=== PATIENT | female | born 1960 | race Caucasian/White ===

== ENCOUNTER 2019-09-19 11:02 | Emergency (ER) | payer MEDICARE, OTHER ==
[~2019-09-19] VITALS: Ht 170.2 cm; Wt 83.9 kg
[~2019-09-19 11:02] MED LIST: ALDACTONE25 MG PO; CARVEDILOL12.5 MG PO; CYCLOBENZAPRINE10 MG PO; FUROSEMIDE20 MG PO; GUAIFENESIN AC473 ML PO; LOVASTATIN40 MG PO; PROVENTIL HFA6.7 GM INH; TRAMADOL HCL50 MG PO; ZESTRIL5 MG PO; ZITHROMAX250 MG PO
[2019-09-19] MEDS ORDERED: SPIRONOLACTONE25 MG PO (11:23)
[2019-09-19] MEDS ORDERED: ANORO ELLIPTA1 EACH INH (11:24)
[2019-09-19] MEDS ORDERED: NORCO 5-325 TA1 EACH PO (12:54)
[2019-09-19] MEDS ORDERED: PREDNISONE20 MG PO (12:54)
== END 2019-09-19 13:00 | disposition home or self-care (01) ==
LOC: ED 11:02
DX: M25.561 Pain in right knee (principal); I50.9 Heart failure, unspecified; E78.00 Pure hypercholesterolemia, unspecified; F17.200 Nicotine dependence, unspecified, uncomplicated; Z88.5 Allergy status to narcotic agent; Z79.899 Other long term (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
CPT/HCPCS: 73560; 99283-25

== ENCOUNTER → 2019-11-17 | Emergency (ER) | payer MEDICARE, OTHER ==
[~2019-11-17] VITALS: Ht 170.2 cm; Wt 83.9 kg
[~2019-11-17] MED LIST changes: +ANORO ELLIPTA1 EACH INH; +NORCO 5-325 TA1 EACH PO; +PREDNISONE20 MG PO; +SPIRONOLACTONE25 MG PO
== END ==
LOC: ED 18:13
DX: M54.42 Lumbago with sciatica, left side (principal); I50.9 Heart failure, unspecified; J44.9 Chronic obstructive pulmonary disease, unspecified; F17.200 Nicotine dependence, unspecified, uncomplicated; Z88.5 Allergy status to narcotic agent; Z79.899 Other long term (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
CPT/HCPCS: 99283

== ENCOUNTER 2020-01-11 08:31 | Emergency (ER) | payer MEDICARE, OTHER ==
[~2020-01-11] VITALS: Ht 170.2 cm; Wt 83.9 kg
[2020-01-11] MEDS ORDERED: NORCO 5-325 TA1 EACH PO (12:04)
== END 2020-01-11 12:13 | disposition home or self-care (01) ==
LOC: ED 08:31
DX: R10.9 Unspecified abdominal pain (principal); N28.1 Cyst of kidney, acquired; I50.9 Heart failure, unspecified; N18.3 Chronic kidney disease, stage 3 (moderate); J44.9 Chronic obstructive pulmonary disease, unspecified; F17.200 Nicotine dependence, unspecified, uncomplicated; Z79.899 Other long term (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
CPT/HCPCS: 74176; 80048; 81001; 85025; 96374; 96375; 96376; 99284-25; J1170; J1885; J2405

== ENCOUNTER 2020-01-22 07:10 | Emergency (ER) | payer MEDICARE, OTHER ==
[~2020-01-22] VITALS: Ht 170.2 cm; Wt 83.9 kg
--- OUTSIDE RECORDS SUMMARY | 2020-01-22 07:14 | XMS ---
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 Care Guidelines exist for the following facilities: [facility] ( 08/25/2017 ) [place] VISIT COUNT (12 MO.) 4 [facility] TOTAL 4 NOTE: Visits indicate total known visits. 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 - Heart failure, unspecified - Chronic kidney disease, stage 3 (moderate) - Cyst of kidney, acquired - Chronic obstructive pulmonary disease, unspecified - Nicotine dependence, unspecified, uncomplicated 11/17/2019 18:14 [facility] [place] TYPE: Emergency COMPLAINT: - L LEFT PAIN DIAGNOSES: - Heart failure, unspecified - Lumbago with sciatica, left side - Chronic obstructive pulmonary disease, unspecified - Nicotine dependence, unspecified, uncomplicated - Allergy status to narcotic agent status - Low back pain - 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
[2020-01-22] MEDS ORDERED: PREDNISONE20 MG PO (08:31)
--- NOTE | 2020-01-22 16:34 | EKG ---
[facility] [address] [place], [place] [address] Signed Normal sinus rhythm with sinus arrhythmia Left bundle branch block Abnormal ECG No previous ECGs available Confirmed by FATOUMATA ISAAC DO ([id number]) on 01/22/2020 4:34:30 PM Electronically Signed By: FATOUMATA ISAAC DO 01/22/20 1634 PATIENT NAME: MARTHA YOUNGBLOOD LUCIUS Electrocardiogram DATE OF : 58 PHYSICIAN: FATOUMATA ISAAC DO REPORT #: [id number] REPORT IS CONFIDENTIAL AND NOT TO BE RELEASED WITHOUT AUTHORIZATION
== END 2020-01-22 10:03 | disposition home or self-care (01) ==
LOC: ED 07:10
DX: J44.1 Chronic obstructive pulmonary disease with (acute) exacerbation (principal); I50.9 Heart failure, unspecified; E78.00 Pure hypercholesterolemia, unspecified; Z87.891 Personal history of nicotine dependence; Z79.899 Other long term (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
CPT/HCPCS: 71045; 80053; 83735; 83880; 84484; 85025; 93005; 93010; 96374; 99285-25; J1885; J7512

== ENCOUNTER 2020-02-01 07:45 | Emergency (ER) | payer MEDICARE, OTHER ==
[~2020-02-01] VITALS: Ht 170.2 cm; Wt 81.7 kg
--- OUTSIDE RECORDS SUMMARY | 2020-02-01 07:48 | XMS ---
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 If patient is seen in the ED during business hours. Please contact CHWs at [facility]. - Care Recommendation: If this patient has had 5 or more Emergency Department visits in the last 12 months.\T\nbsp; Patient will require education on the scope and purpose of the ED as an acute care provider not a Primary Care Provider and should not be utilized for chronic conditions.\T\nbsp; These are guidelines and the provider should exercise clinical judgment when providing care. E.D. VISIT COUNT (12 MO.) 5 [facility] TOTAL 5 NOTE: Visits indicate total known visits. 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
[2020-02-01] MEDS ORDERED: SYMBICORT 16010.2 GM INH (08:58)
[2020-02-01] MEDS ORDERED: NORCO 5-325 TA1 EACH PO (09:36)
[2020-02-01] MEDS ORDERED: CYCLOBENZAPRINE10 MG PO (09:36)
[2020-02-01] MEDS ORDERED: LIDODERM1 EACH TOP (09:36)
[2020-02-01] MEDS ORDERED: PREDNISONE20 MG PO (09:36)
== END 2020-02-01 09:54 | disposition home or self-care (01) ==
LOC: ED 07:45
DX: M54.41 Lumbago with sciatica, right side (principal); M54.42 Lumbago with sciatica, left side; I50.9 Heart failure, unspecified; J44.9 Chronic obstructive pulmonary disease, unspecified; Z79.899 Other long term (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
CPT/HCPCS: 99283; A9270; J7512

== ENCOUNTER 2020-05-14 09:50 | Emergency (ER) | payer MEDICARE, OTHER ==
[~2020-05-14] VITALS: Ht 170.2 cm; Wt 97.4 kg
[~2020-05-14 09:50] MED LIST changes: +LIDODERM1 EACH TOP; +SYMBICORT 16010.2 GM INH
--- OUTSIDE RECORDS SUMMARY | 2020-05-14 09:52 | XMS ---
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 If patient is seen in the ED during business hours. Please contact CHWs at [facility]. - Care Recommendation: If this patient has [...] providing care. E.D. VISIT COUNT (12 MO.) 6 [facility] TOTAL 6 NOTE: Visits indicate total known visits. 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 - Chest pain, unspecified - Personal history of nicotine dependence - Pure hypercholesterolemia, unspecified - Chronic obstructive pulmonary disease with (acute) exacerbation - Heart failure, unspecified 01/11/2020 08:31 [facility] [place] TYPE: Emergency COMPLAINT: - L SIDE FLANK PAIN DIAGNOSES: - Unspecified abdominal pain - 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 worker (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 - Heart failure, unspecified [...] uncomplicated - Allergy status to narcotic agent - Low back pain - Other residential (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 09/19/2019 11:03 [facility] [place] TYPE: Emergency COMPLAINT: - KNEE PAIN, NON INJ DIAGNOSES: - Pure hypercholesterolemia, unspecified - Pain in right knee - Allergy status to narcotic agent - Nicotine dependence, unspecified, uncomplicated - Heart failure, unspecified - Other residential (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 INPATIENT VISIT TRACKING (12 MO.) No inpatient visits to display in this time frame [id number]
[2020-05-14] MEDS ORDERED: KEFLEX500 MG PO (15:59)
== END 2020-05-14 17:39 | disposition home or self-care (01) ==
LOC: ED 09:50
DX: N39.0 Urinary tract infection, site not specified (principal); I50.9 Heart failure, unspecified; E78.00 Pure hypercholesterolemia, unspecified; Z87.891 Personal history of nicotine dependence; Z79.899 Other long term (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
CPT/HCPCS: 74176; 76770; 80048; 81001; 85025; 87088; 96365; 96375; 99284-25; J0696; J1170; J1885; J2405

== ENCOUNTER 2020-07-23 06:30 | Emergency (ER) | payer MEDICARE, OTHER ==
[~2020-07-23] VITALS: Ht 170.2 cm; Wt 88.5 kg
[~2020-07-23 06:30] MED LIST changes: +KEFLEX500 MG PO
--- OUTSIDE RECORDS SUMMARY | 2020-07-23 06:32 | XMS ---
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 If patient is seen in the ED during business hours. Please contact CHWs at [facility]. - Care Recommendation: If this patient [...] providing care. E.D. VISIT COUNT (12 MO.) 7 [facility] TOTAL 7 NOTE: Visits indicate total known visits. 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 - Heart failure, unspecified - Lumbago with sciatica, left side - Lumbago with sciatica, right side - Personal history of nicotine dependence - Chronic obstructive pulmonary disease, unspecified - Low back pain 01/22/2020 07:11 [facility] [place] TYPE: Emergency COMPLAINT: - CHEST PAIN DIAGNOSES: - Other alf (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 - Chest pain, unspecified - Personal history of nicotine dependence - Pure hypercholesterolemia, unspecified - Chronic obstructive pulmonary disease with (acute) exacerbation - Heart failure, unspecified 01/11/2020 08:31 [facility] [place] TYPE: Emergency COMPLAINT: - L SIDE FLANK PAIN DIAGNOSES: - Unspecified abdominal pain - Other alf (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 - Heart failure, unspecified [...] agent - Low back pain - Other alf (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 09/19/2019 11:03 [facility] [place] TYPE: Emergency COMPLAINT: - KNEE PAIN, NON INJ DIAGNOSES: - Pure hypercholesterolemia, unspecified - Pain in right knee - Allergy status to narcotic agent - Nicotine dependence, unspecified, uncomplicated - Heart failure, unspecified - Other roasterman (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 INPATIENT VISIT TRACKING (12 MO.) No inpatient visits to display in this time frame [id number]
[2020-07-23] MEDS ORDERED: HYDROCODON-ACE1 EA10 PO (08:56)
[2020-07-23] MEDS ORDERED: PREDNISONE20 MG PO (08:56)
[2020-07-23] MEDS ORDERED: AUGMENTIN 875-1 EACH PO (08:56)
--- NOTE | 2020-07-24 16:40 | EKG ---
[facility] [address] [place], [place] [address] Signed Normal sinus rhythm Left bundle branch block Abnormal ECG When compared with ECG of 22-JAN-2020 07:17, No significant change was found Confirmed by FATOUMATA ISAAC DO ([id number]) on 07/24/2020 4:40:04 PM Electronically Signed By: FATOUMATA ISAAC DO 07/24/20 1640 PATIENT NAME: GLENN YOUNGBLOODALBERT KAN Electrocardiogram DATE OF : 58 PHYSICIAN: FATOUMATA ISAAC DO REPORT #: [id number] REPORT IS CONFIDENTIAL AND NOT TO BE RELEASED WITHOUT AUTHORIZATION
== END 2020-07-23 09:07 | disposition home or self-care (01) ==
LOC: ED 06:30
DX: J32.9 Chronic sinusitis, unspecified (principal); J40 Bronchitis, not specified as acute or chronic; Z20.822 Contact with and (suspected) exposure to COVID-19; I50.9 Heart failure, unspecified; E78.00 Pure hypercholesterolemia, unspecified; J44.9 Chronic obstructive pulmonary disease, unspecified; Z87.891 Personal history of nicotine dependence; Z91.018 Allergy to other foods; Z79.899 Other long term (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
CPT/HCPCS: 71045; 80048; 83880; 84484; 85025; 93005; 93010; 94640; 94664; 99285-25; 99406; C9803; J1100; U0003

== ENCOUNTER 2020-08-18 06:06 | Emergency (ER) | payer MEDICARE, OTHER ==
[~2020-08-18] VITALS: Ht 170.2 cm; Wt 88.5 kg
[~2020-08-18 06:06] MED LIST changes: +AUGMENTIN 875-1 EACH PO; +HYDROCODON-ACE1 EA10 PO
--- OUTSIDE RECORDS SUMMARY | 2020-08-18 06:10 | XMS ---
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 No recent Security Events currently on file CRITERIA MET - [facility] - Has Care Guidelines - PDMP - [facility] - 2 Visits in 30 Days CARE PROVIDERS JESÚS NAVA [facility] 01/24/2020-Current PHONE: [phone] Care Guidelines exist for the following facilities: [facility] ( 08/25/2017 ) Care History Medical/Surgical 07/24/2020 [facility] Spoke with patient about using Walk In Clinic for non life threatening medical treatment.\T\nbsp; Patient stated she needed to be seen SANDRA cause her sinuses were so full that she was having trouble breathing, but she will try to use it if there is a next timje. 01/24/2020 [facility] - Patient is currently established with [facility]. If patient is seen in the ED during business hours. Please contact CHWs at [facility]. - Care Recommendation: If this patient has had 5 or more Emergency Department visits in the last 12 months.\T\nbsp; Patient will require education on the scope and purpose of the ED as an acute care provider not a Primary Care Provider and should not be utilized for chronic conditions.\T\nbsp; These are guidelines and the provider should exercise clinical judgment when providing care. ERashawnD. VISIT COUNT (12 MO.) 8 [facility] TOTAL 8 NOTE: Visits indicate total known visits. ED/UCC VISIT TRACKING (12 MO.) 08/18/2020 06:07 [facility] [place] TYPE: Emergency COMPLAINT: - DENTAL PAIN 07/23/2020 06:31 [facility] [place] TYPE: Emergency COMPLAINT: - COLD SYMPTOMS DIAGNOSES: - Allergy to other foods - Bronchitis, not specified as acute or chronic - Personal history of nicotine dependence - Chronic sinusitis, unspecified - Pure hypercholesterolemia, unspecified - Heart failure, unspecified - Other custodial (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 - Chronic obstructive pulmonary disease, unspecified - Shortness of breath 05/14/2020 09:51 [facility] [place] TYPE: Emergency COMPLAINT: - BACK PAIN DIAGNOSES: - Pure hypercholesterolemia, unspecified - Personal history of nicotine dependence - Heart failure, unspecified - Urinary tract infection, site not specified - Unspecified abdominal pain - 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 carman (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 02/01/2020 07:45 [facility] [place] TYPE: Emergency COMPLAINT: - LOWER BACK/LEGS PAIN DIAGNOSES: - 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 carman (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 - Heart failure, unspecified - Lumbago with sciatica, left side - Lumbago with sciatica, right side - Personal history of nicotine dependence - Chronic obstructive pulmonary disease, unspecified - Low back pain 01/22/2020 07:11 [facility] [place] TYPE: Emergency COMPLAINT: - CHEST PAIN DIAGNOSES: - 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 carman (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 - Chest pain, unspecified - Personal history of nicotine dependence - Pure hypercholesterolemia, unspecified - Chronic obstructive pulmonary disease with (acute) exacerbation - Heart failure, unspecified 01/11/2020 08:31 [facility] [place] [facility] [place] TYPE: Emergency COMPLAINT: - L SIDE FLANK PAIN DIAGNOSES: - Unspecified abdominal pain - Other custodial (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 - Heart failure, unspecified - Chronic kidney disease, stage 3 (moderate) - Cyst of kidney, acquired - Chronic obstructive pulmonary disease, unspecified - Nicotine dependence, unspecified, uncomplicated 11/17/2019 18:14 [facility] [place] [facility] [place] TYPE: Emergency COMPLAINT: - L LEFT PAIN DIAGNOSES: - Heart failure, unspecified - Lumbago with sciatica, left side - Chronic obstructive pulmonary disease, unspecified - Nicotine dependence, unspecified, uncomplicated - Allergy status to narcotic agent - Low back pain - Other custodial (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 09/19/2019 11:[address] [facility] [place] TYPE: Emergency COMPLAINT: - KNEE PAIN, NON INJ DIAGNOSES: - Pure hypercholesterolemia, unspecified - Pain in right knee - Allergy status to narcotic agent - Nicotine dependence, unspecified, uncomplicated - Heart failure, unspecified - 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 carman (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 INPATIENT VISIT TRACKING (12 MO.) No inpatient visits to display in this time frame [email or web address]
[2020-08-18] MEDS ORDERED: PENICILLIN V P500 MG PO (06:45)
== END 2020-08-18 06:52 | disposition home or self-care (01) ==
LOC: ED 06:06
DX: K04.7 Periapical abscess without sinus (principal); I50.9 Heart failure, unspecified; E78.00 Pure hypercholesterolemia, unspecified; J44.9 Chronic obstructive pulmonary disease, unspecified; Z87.891 Personal history of nicotine dependence; Z91.018 Allergy to other foods; Z79.899 Other long term (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; Z79.52 Long term (current) use of systemic steroids
CPT/HCPCS: 99282

== ENCOUNTER 2020-12-31 09:02 | Emergency (ER) | payer MEDICARE, OTHER ==
[~2020-12-31] VITALS: Ht 170.2 cm; Wt 88.5 kg
[~2020-12-31 09:02] MED LIST changes: +PENICILLIN V P500 MG PO
--- OUTSIDE RECORDS SUMMARY | 2020-12-31 09:06 | XMS ---
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 No recent Security Events currently on file CRITERIA MET - [facility] - Has Care Guidelines - PDMP CARE PROVIDERS JESÚS NAVA [facility] 01/24/2020-Current PHONE: [phone] Care Guidelines exist for the following facilities: [facility] ( 08/25/2017 ) Care History Medical/Surgical 07/24/2020 [facility] Spoke with patient about using Walk In Clinic for non life threatening medical treatment.\T\nbsp; Patient stated she needed to be seen SANDRA cause her sinuses were so full that she was having trouble breathing, but she will try to use it if there is a next timje. 01/24/2020 [facility] - Patient is currently established with [facility]. If patient is seen in the ED during business hours. Please contact CHWs at [facility]. - Care Recommendation: If this [...] should exercise clinical judgment when providing care. [place] VISIT COUNT (12 MO.) 7 [facility] TOTAL 7 NOTE: Visits indicate total known visits. ED/UCC VISIT TRACKING (12 MO.) 12/31/2020 09:03 [facility] [place] TYPE: Emergency COMPLAINT: - LOWER BACK PAIN 08/18/2020 06:07 [facility] [place] TYPE: Emergency COMPLAINT: - DENTAL PAIN DIAGNOSES: - Personal history of nicotine dependence - Pure hypercholesterolemia, unspecified - penitentiary (current) use of systemic steroids - Periapical abscess without sinus - Chronic obstructive pulmonary disease, unspecified - Heart failure, unspecified - Other skilled nursing (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 - Allergy to other foods 07/23/2020 06:31 [facility] [place] TYPE: Emergency COMPLAINT: - COLD SYMPTOMS DIAGNOSES: - Allergy to other foods - Bronchitis, not specified as acute or chronic - Personal history of nicotine dependence - Chronic sinusitis, unspecified - Pure hypercholesterolemia, unspecified - Heart failure, unspecified - Other skilled nursing (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 - Chronic obstructive pulmonary disease, unspecified - Shortness of breath 05/14/2020 09:51 [facility] [place] TYPE: Emergency COMPLAINT: - BACK PAIN DIAGNOSES: - Pure hypercholesterolemia, unspecified - Personal history of nicotine dependence - Heart failure, unspecified - Urinary tract infection, site not specified - Unspecified abdominal pain - Other intermediate card tender (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 02/01/2020 07:45 [facility] [place] TYPE: Emergency COMPLAINT: - LOWER BACK/LEGS PAIN DIAGNOSES: - Other intermediate card tender (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 - Heart failure, unspecified - Lumbago with sciatica, left side - Lumbago with sciatica, right side - Personal history of nicotine dependence - Chronic obstructive pulmonary disease, unspecified - Low back pain 01/22/2020 07:11 [facility] [place] TYPE: Emergency COMPLAINT: - CHEST PAIN DIAGNOSES: - Other intermediate card tender (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 - Chest pain, unspecified - Personal history of nicotine dependence - Pure hypercholesterolemia, unspecified - Chronic obstructive pulmonary disease with (acute) exacerbation - Heart failure, unspecified 01/11/2020 08:31 [facility] [place] TYPE: Emergency COMPLAINT: - L SIDE FLANK PAIN DIAGNOSES: - Unspecified abdominal pain - Other intermediate card tender (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 - Heart failure, unspecified - Chronic kidney disease, stage 3 (moderate) - Cyst of kidney, acquired - Chronic obstructive pulmonary disease, unspecified - Nicotine dependence, unspecified, uncomplicated INPATIENT VISIT TRACKING (12 MO.) No inpatient visits to display in this time frame [email or web address]
[2020-12-31] MEDS ORDERED: FLAGYL500 MG PO (13:50)
[2020-12-31] MEDS ORDERED: HYDROCODON-ACE1 EA11 PO (13:50)
[2020-12-31] MEDS ORDERED: CIPRO500 MG PO (13:50)
[2020-12-31] MEDS ORDERED: ONDANSETRON ODT8 MG PO (13:53)
== END 2020-12-31 14:23 | disposition home or self-care (01) ==
LOC: ED 09:02
DX: K57.32 Diverticulitis of large intestine without perforation or abscess without bleeding (principal); I50.9 Heart failure, unspecified; E78.00 Pure hypercholesterolemia, unspecified; Z87.891 Personal history of nicotine dependence; Z91.018 Allergy to other foods; Z79.899 Other long term (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; Z79.52 Long term (current) use of systemic steroids
CPT/HCPCS: 74176; 80053; 81001; 85025; 96374; 96375; 96376; 99284-25; J1170; J1885; J2405; J2550; J7030

== ENCOUNTER 2021-01-08 11:46 | Emergency (ER) | payer MEDICARE, OTHER ==
[~2021-01-08] VITALS: Ht 170.2 cm; Wt 88.5 kg
[~2021-01-08 11:46] MED LIST changes: +CIPRO500 MG PO; +FLAGYL500 MG PO; +HYDROCODON-ACE1 EA11 PO; +ONDANSETRON ODT8 MG PO
--- OUTSIDE RECORDS SUMMARY | 2021-01-08 11:48 | XMS ---
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 No recent Security Events currently on file CRITERIA MET - [facility] - 2 Visits in 30 Days - PDMP - [facility] - Has Care Guidelines CARE PROVIDERS JESÚS NAVA [facility] 01/24/2020-Current PHONE: [phone] Care Guidelines exist for the following facilities: [facility] ( 08/25/2017 ) Care History Medical/Surgical 07/24/2020 [facility] Spoke with patient about using Walk In Clinic for non life threatening medical treatment.\T\nbsp; Patient stated she needed to be seen SANDRA cause her sinuses were so full that she was having trouble breathing, but she will try to use it if there is a next timje. 01/24/2020 [facility] - Patient is currently established with [facility]. If patient is seen in the ED during business hours. Please contact CHWs at [facility]. - Care Recommendation: If this [...] providing care. E.D. VISIT COUNT (12 MO.) 8 HANG Veloz TOTAL 8 NOTE: Visits indicate total known visits. ED/UCC VISIT TRACKING (12 MO.) 01/08/2021 11:47 [facility] [place] TYPE: Emergency COMPLAINT: - NAUSEA/VOMITING 12/31/2020 09:03 [facility] [place] TYPE: Emergency COMPLAINT: - LOWER BACK PAIN DIAGNOSES: - Allergy to other foods - Personal history of nicotine dependence - Other assisted (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 - Heart failure, unspecified - Pure hypercholesterolemia, unspecified - long-term (current) use of systemic steroids - Unspecified abdominal pain - Diverticulitis of large intestine without perforation or abscess without bleeding 08/18/2020 06:07 [facility] [place] TYPE: Emergency COMPLAINT: - DENTAL PAIN DIAGNOSES: - Personal history of nicotine dependence - Pure hypercholesterolemia, unspecified - meterman (current) use of systemic steroids - Periapical abscess without sinus - Chronic obstructive pulmonary disease, unspecified - Heart failure, unspecified - Other assisted (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 - Allergy to other foods 07/23/2020 06:31 [facility] [place] TYPE: Emergency COMPLAINT: - COLD SYMPTOMS DIAGNOSES: - Allergy to other foods - Bronchitis, not specified as acute or chronic - Personal history of nicotine dependence - Chronic sinusitis, unspecified - Pure hypercholesterolemia, unspecified - Heart failure, unspecified - Other assisted (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 - Chronic obstructive pulmonary disease, unspecified - Shortness of breath 05/14/2020 09:51 [facility] [place] TYPE: Emergency COMPLAINT: - BACK PAIN DIAGNOSES: - Pure hypercholesterolemia, unspecified - Personal history of nicotine dependence - Heart failure, unspecified - Urinary tract infection, site not specified - Unspecified abdominal pain - Other keno terminal operator (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 02/01/2020 07:45 [facility] [place] TYPE: Emergency COMPLAINT: - LOWER BACK/LEGS PAIN DIAGNOSES: - Other keno terminal operator (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 - Heart failure, unspecified - Lumbago with sciatica, left side - Lumbago with sciatica, right side - Personal history of nicotine dependence - Chronic obstructive pulmonary disease, unspecified - Low back pain 01/22/2020 07:11 [facility] [place] TYPE: Emergency COMPLAINT: - CHEST PAIN DIAGNOSES: - Other assisted (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 - Chest pain, unspecified - Personal history of nicotine dependence - Pure hypercholesterolemia, unspecified - Chronic obstructive pulmonary disease with (acute) exacerbation - Heart failure, unspecified 01/11/2020 08:31 [facility] [place] TYPE: Emergency COMPLAINT: - L SIDE FLANK PAIN DIAGNOSES: - Unspecified abdominal pain - Other keno terminal operator (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 - Heart failure, unspecified - Chronic kidney disease, stage 3 (moderate) - Cyst of kidney, acquired - Chronic obstructive pulmonary disease, unspecified - Nicotine dependence, unspecified, uncomplicated INPATIENT VISIT TRACKING (12 MO.) No inpatient visits to display in this time frame [email or web address]
== END 2021-01-08 16:33 | disposition home or self-care (01) ==
LOC: ED 11:46
DX: U07.1 COVID-19 (principal); I50.9 Heart failure, unspecified; E78.00 Pure hypercholesterolemia, unspecified; Z87.891 Personal history of nicotine dependence; Z91.018 Allergy to other foods; Z79.899 Other long term (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; Z79.52 Long term (current) use of systemic steroids
CPT/HCPCS: 80053; 81001; 83690; 83735; 85025; 96374; 96376; 99284-25; C9803; J2405; J7040; M0243; Q0244; U0003

== ENCOUNTER 2021-06-13 17:11 | Emergency (ER) | payer MEDICARE, OTHER ==
[~2021-06-13] VITALS: Ht 170.2 cm; Wt 88.5 kg
--- OUTSIDE RECORDS SUMMARY | 2021-06-13 17:14 | XMS ---
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) in the past 18 months Most recent security events: Elopement at [facility] 05/29/2021 16:21 - Other Details: PATIENT LWBS CRITERIA MET - [facility] - 2 Visits in 30 Days - [facility] - Has Care Guidelines CARE PROVIDERS JESÚS NAVA [facility] 01/24/2020-Current PHONE: [phone] Care Guidelines exist for the following facilities: [facility] ( 08/25/2017 ) Care History Medical/Surgical 07/24/2020 [facility] Spoke with patient about using [facility] for non life threatening medical treatment.\T\nbsp; Patient stated she needed to be seen SANDRA cause her sinuses were so full that she was having trouble breathing, but she will try to use it if there is a next timje. 01/24/2020 [facility] - Patient is currently established with [facility]. If patient is seen in the ED during business hours. Please contact CHWs at [facility]. - Care Recommendation: If this patient has [...] known visits. 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 - Nausea - Personal history of nicotine dependence - COVID-19 - Pure hypercholesterolemia, unspecified - Allergy to other foods - Other usp (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 - Heart failure, unspecified 12/31/2020 09:03 [facility] [place] TYPE: Emergency COMPLAINT: - LOWER BACK PAIN DIAGNOSES: - Allergy to other foods - Personal history of nicotine dependence - Other usp (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 - Heart failure, unspecified - Pure hypercholesterolemia, unspecified - halfway (current) use of systemic steroids - Unspecified abdominal pain - Diverticulitis of large intestine without perforation or abscess without bleeding 08/18/2020 06:07 [facility] [place] TYPE: Emergency COMPLAINT: - DENTAL PAIN DIAGNOSES: - Personal history of nicotine dependence - Pure hypercholesterolemia, unspecified - 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 (current) use of systemic 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 - Periapical abscess without sinus - Chronic obstructive pulmonary disease, unspecified - Heart failure, unspecified - Other buttermaker (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 - Allergy to other foods 07/23/2020 06:31 [facility] [place] TYPE: Emergency COMPLAINT: - COLD SYMPTOMS DIAGNOSES: - Allergy to other foods - Bronchitis, not specified as acute or chronic - Personal history of nicotine dependence - Chronic sinusitis, unspecified - Pure hypercholesterolemia, unspecified - Heart failure, unspecified - Other buttermaker (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 - Chronic obstructive pulmonary disease, unspecified - Shortness of breath INPATIENT VISIT TRACKING (12 MO.) No inpatient visits to display in this time frame [email or web address]
[2021-06-13] MEDS ORDERED: MAPAP500 MG PO (19:54)
[2021-06-13] MEDS ORDERED: IBU800 MG PO (19:54)
== END 2021-06-13 20:23 | disposition home or self-care (01) ==
LOC: ED 17:11
DX: M17.11 Unilateral primary osteoarthritis, right knee (principal); I50.9 Heart failure, unspecified; E78.00 Pure hypercholesterolemia, unspecified; Z87.891 Personal history of nicotine dependence; Z91.018 Allergy to other foods
CPT/HCPCS: 73560; 99283-25

== ENCOUNTER 2021-11-20 17:03 | Emergency (ER) | payer MEDICARE, OTHER ==
[~2021-11-20] VITALS: Ht 170.2 cm; Wt 88.5 kg
[~2021-11-20 17:03] MED LIST changes: +IBU800 MG PO; +MAPAP500 MG PO
--- OUTSIDE RECORDS SUMMARY | 2021-11-20 17:06 | XMS ---
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(s) in the past 18 months Most recent security events: Elopement at [facility] 05/29/2021 16:21 - Other Details: PATIENT LWBS CRITERIA MET - [facility] - Has Care Guidelines - PDMP CARE PROVIDERS JESÚS NAVA [facility] 01/24/2020-Current PHONE: Unknown Care Guidelines exist for the following facilities: [facility] ( 08/25/2017 ) Care History Medical/Surgical 07/24/2020 [facility] Spoke with patient about using [facility] for non life threatening medical treatment.\T\nbsp; Patient stated she needed to be seen SANDRA cause her sinuses were so full that she was having trouble breathing, but she will try to use it if there is a next timje. 01/24/2020 [facility] - Patient is currently established with [facility]. If patient is seen in the ED during business hours. Please contact CHWs at [facility]. - Care Recommendation: If this patient [...] known visits. ED/UCC VISIT TRACKING (12 MO.) 11/20/2021 17:04 HANG Marroquin [place] TYPE: Emergency COMPLAINT: - HEADACHE, NAUSEA, LOWER EXTREMITY PAIN 06/13/2021 17:12 HANG Marroquin [place] TYPE: Emergency COMPLAINT: - RT KNEE PAIN DIAGNOSES: - Pain in right knee - Personal history of nicotine dependence - Unilateral primary osteoarthritis, right knee - Pure hypercholesterolemia, unspecified - Heart failure, unspecified - Allergy to other foods 05/29/2021 16:21 H[facility] Marro[facility] [place] TYPE: Emergency COMPLAINT: - DENTAL PROBLEM 01/08/2021 11:47 HANG Marroquin [place] TYPE: Emergency COMPLAINT: - NAUSEA/VOMITING DIAGNOSES: - M[facility] (current) use of systemic steroids - Nausea - Personal history of nicotine dependence - COVID-19 - Pure hypercholesterolemia, unspecified - Allergy to other foods - Other shelter (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 - Heart failure, unspecified 12/31/2020 09:03 [facility]ro[facility] [place] TYPE: Emergency COMPLAINT: - LOWER BACK PAIN DIAGNOSES: - Allergy to other foods - Personal history of nicotine dependence - Other shelter (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 - Heart failure, unspecified - Pure hypercholesterolemia, unspecified - [facility] (current) use of systemic steroids - Unspecified abdominal pain - Diverticulitis of large intestine without perforation or abscess without bleeding INPATIENT VISIT TRACKING (12 MO.) No inpatient visits to display in this time frame [email or web address]
[2021-11-20] MEDS ORDERED: PAXLOVID 150-11 EACH PO (21:39)
== END 2021-11-20 22:18 | disposition home or self-care (01) ==
LOC: ED 17:03
DX: U07.1 COVID-19 (principal); I50.9 Heart failure, unspecified; E78.00 Pure hypercholesterolemia, unspecified; Z87.891 Personal history of nicotine dependence; Z91.018 Allergy to other foods; Z79.899 Other long term (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
CPT/HCPCS: 36415; 70450; 71045; 80053; 81001; 84484; 85025; 87088; 87502; 96361; 96374; 96375; 99284-25; J1885; J2405; J7121; U0003

== ENCOUNTER 2022-07-29 15:54 | Emergency (ER) | payer MEDICARE, OTHER ==
[~2022-07-29] VITALS: Ht 165.1 cm; Wt 81.7 kg
[~2022-07-29 15:54] MED LIST changes: +PAXLOVID 150-11 EACH PO
--- OUTSIDE RECORDS SUMMARY | 2022-07-29 15:59 | XMS ---
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(s) in the past 18 months Most recent security events: Elopement at [facility] 05/29/2021 16:21 - Other Details: PATIENT LWBS CRITERIA MET - PDMP CARE PROVIDERS Talya Spivey Nurse Practitioner: Family Current PHONE: [phone] JESÚS NAVA [facility] 01/24/2020-Current PHONE: Unknown Care Guidelines exist for the following facilities: [facility] ( 08/25/2017 ) Care History Medical/Surgical 07/24/2020 [facility] Spoke with patient about using [facility] for non life threatening medical treatment.\T\nbsp; Patient stated she needed to be seen SANDRA cause her sinuses were so full that she was having trouble breathing, but she will try to use it if there is a next timje. 01/24/2020 [facility] - Patient is currently established with [facility]. If patient is seen in the ED during business hours. Please contact CHWs at [facility]. - Care Recommendation: If this patient [...] providing care. E.D. VISIT COUNT (12 MO.) 2 [facility]. TOTAL 2 NOTE: Visits indicate total known visits. ED/UCC VISIT TRACKING (12 MO.) 07/29/2022 15:56 [facility]ro[facility] [place] TYPE: Emergency COMPLAINT: - L ANKLE PAIN 11/20/2021 17:04 H[facility] Marroquin [place] TYPE: Emergency COMPLAINT: - HEADACHE, NAUSEA, LOWER EXTREMITY PAIN DIAGNOSES: - COVID-19 - Allergy to other foods - Personal history of nicotine dependence - 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 supervisor (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 - Pure hypercholesterolemia, unspecified - Headache, unspecified - Heart failure, unspecified INPATIENT VISIT TRACKING (12 MO.) No inpatient visits to display in this time frame [email or web address]
== END 2022-07-29 18:09 | disposition home or self-care (01) ==
LOC: ED 15:54
DX: S93.402A Sprain of unspecified ligament of left ankle, initial encounter (principal); W10.8XXA Fall (on) (from) other stairs and steps, initial encounter; I50.9 Heart failure, unspecified; E78.00 Pure hypercholesterolemia, unspecified; Z87.891 Personal history of nicotine dependence; Z91.018 Allergy to other foods; Z79.899 Other long term (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
CPT/HCPCS: 73610; 99283-25

== ENCOUNTER 2022-08-21 08:39 | Emergency (ER) | payer MEDICARE, OTHER ==
[~2022-08-21] VITALS: Ht 165.1 cm; Wt 81.6 kg
--- OUTSIDE RECORDS SUMMARY | 2022-08-21 08:43 | XMS ---
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 event(s) in the past 18 months Most recent security events: Elopement at [facility] 05/29/2021 16:21 - Other Details: PATIENT LWBS CRITERIA MET - [facility] - 2 Visits in 30 Days - PDMP CARE PROVIDERS Talya Spivey Nurse Practitioner: Family Current PHONE: [phone] JESÚS NAVA [facility] 01/24/2020-Current PHONE: Unknown Care Guidelines exist for the following facilities: [facility] ( 08/25/2017 ) Care History Medical/Surgical 07/24/2020 [facility] Spoke with patient about using [facility] for non life threatening medical treatment.\T\nbsp; Patient stated she needed to be seen SANDRA cause her sinuses were so full that she was having trouble breathing, but she will try to use it if there is a next timje. 01/24/2020 [facility] - Patient is currently established with [facility]. If patient is seen in the ED during business hours. Please contact CHWs at [facility]. - Care Recommendation: If this patient [...] providing care. E.D. VISIT COUNT (12 MO.) 3 [facility]. TOTAL 3 NOTE: Visits indicate total known visits. ED/UCC VISIT TRACKING (12 MO.) 08/21/2022 08:39 [facility]ro[facility] [place] TYPE: Emergency COMPLAINT: - CHEST PAIN 07/29/2022 15:56 H[facility] Marro[facility] [place] TYPE: Emergency COMPLAINT: - L ANKLE PAIN DIAGNOSES: - Fall (on) (from) other stairs and steps, initial encounter - Pain in left ankle and joints of left foot - Allergy to other foods - Sprain of unspecified ligament of left ankle, initial encounter - Other staff home therapy rn (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 - Personal history of nicotine dependence - Pure hypercholesterolemia, unspecified - Heart failure, unspecified 11/20/2021 17:04 H[facility]ro[facility] [place] TYPE: Emergency COMPLAINT: - HEADACHE, NAUSEA, LOWER EXTREMITY PAIN DIAGNOSES: - Pure hypercholesterolemia, unspecified - Headache, unspecified - Heart failure, unspecified - COVID-19 - Allergy to other foods - Personal history of nicotine dependence - Other staff home therapy rn (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 INPATIENT VISIT TRACKING (12 MO.) No inpatient visits to display in this time frame [email or web address]
--- NOTE | 2022-08-23 21:24 | EKG ---
[facility] [address] [facility] [address] [facility] [place] [address] Signed Normal sinus rhythm Left bundle branch block Abnormal ECG No previous ECGs available Confirmed by BRADEN MESSER MD ([id number]) on 08/23/2022 9:24:13 PM Electronically Signed By: BRADEN MESSER MD 08/23/222123 PATIENT NAME: MARTHA YOUNGBLOOD LUCIUS Electrocardiogram DATE OF : 58 PHYSICIAN: BRADEN MESSER MD REPORT #: [id number] REPORT IS CONFIDENTIAL AND NOT TO BE RELEASED WITHOUT AUTHORIZATION
== END 2022-08-21 11:35 | disposition home or self-care (01) ==
LOC: ED 08:39
DX: R07.89 Other chest pain (principal); I50.9 Heart failure, unspecified; I11.0 Hypertensive heart disease with heart failure; J44.9 Chronic obstructive pulmonary disease, unspecified; E78.00 Pure hypercholesterolemia, unspecified; Z87.891 Personal history of nicotine dependence; Z91.018 Allergy to other foods; Z79.899 Other long term (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
CPT/HCPCS: 36415; 71045; 71260; 80053; 83880; 84484; 85025; 87502; 93005; 93010; 99285-25; Q9967; U0003

== ENCOUNTER 2023-10-18 18:24 | Emergency (ER) | payer MEDICARE, OTHER ==
[~2023-10-18] VITALS: Ht 165.1 cm; Wt 90.6 kg
[~2023-10-18 18:24] MED LIST changes: +AMOX TR-K CLV1 EAC1 PO
[2023-10-18] MEDS ORDERED: LOVASTATIN20 MG PO (18:51)
[2023-10-18] MEDS ORDERED: MORPHINE SULFATE 4 MG/ML VIAL IV ONE (19:15)
[2023-10-18] MEDS ORDERED: ondansetron HCL 4 MG/2 ML VIAL IV ONE (19:15)
[2023-10-18] MEDS ORDERED: SODIUM CHLORIDE 0.9% 1,000 ML IV ONE (19:15)
[2023-10-18 19:21] LABS: BILIRUBIN, URINE NEGATIVE (negative); BLOOD/HGB, URINE MODERATE (Negative); KETONE, URINE NEGATIVE (Negative); LEUK ESTERASE, URINE NEGATIVE (negative); NITRITE, URINE NEGATIVE (negative)
[2023-10-18 19:32] LABS: BACTERIA, URINE 1+ /hpf (negative); CRYSTALS, URINE NONE SEEN (0-1+); EPITHELIAL CELLS, URINE SQUAMOUS 1+ /lpf (0-1+)
[2023-10-18 19:33] LABS: CASTS, URINE HYALINE 1+ \\lpf; COLLECTION TYPE, URINE CLEAN CATCH; REFLEX CULTURE, URINE Yes (No)
[2023-10-18 19:41] LABS: BASOPHILS 0.6 % (0-2); EOSINOPHILS 3.3 % (0-6); HEMATOCRIT 41.7 % (35.0-50.0); HEMOGLOBIN 13.6 g/dL (12.0-18.0); LYMPHOCYTES 28.1 % (24-44); MCH 28.2 (27-36); MCHC 32.5 g/dl (30-36); MCV 86.7 fl (81-99); MONOCYTES 7.8 % (0-12); NEUTROPHILS 60.2 % (39-80); PLATELET COUNT 272 K/uL (140-440); RBC 4.82 M/ul (4.3-5.7); RDW 15.5 (10.5-15.0)
[2023-10-18] MEDS ORDERED: diphenhydrAMINE HCL 50 MG/ML VIAL IV ONE (19:45)
[2023-10-18 19:53] LABS: ALBUMIN 3.7 g/dL (3.4-5.0); ALBUMIN/GLOBULIN RATIO 1.09 (1.1-2.4); ANION GAP 14.5 (7-21); BILIRUBIN, TOTAL 0.3 ng/dL (0.2-1.0); BUN/CREATININE RATIO 19.2 (6.0-28.6); CALCIUM 8.7 mg/dL (8.5-10.1); CREATININE, SERUM 1.51 mg/dL (0.55-1.02); POTASSIUM 4.5 mmol/L (3.5-5.1); PROTEIN, TOTAL 7.1 g/dL (6.4-8.2)
[2023-10-18] MEDS ORDERED: ONDANSETRON ODT8 MG PO (20:07)
[2023-10-18] MEDS ORDERED: CEFDINIR300 MG PO (20:07)
[2023-10-18] MEDS ORDERED: TRAMADOL HCL50 MG PO (20:07)
[2023-10-18] MEDS ORDERED: ONDANSETRON 4 MG HOME.PACK SL ONE (20:15)
[2023-10-18] MEDS ORDERED: TRAMADOL HCL 50 MG HOME.PACK PO ONE (20:15)
[2023-10-18] MEDS ORDERED: CEFDINIR 300 MG HOME.PACK PO ONE (20:15)
[2023-10-18 20:55] VITALS: BP 134/83
== END 2023-10-18 20:54 | disposition home or self-care (01) ==
LOC: ED 18:24
PROVIDERS: Family Medicine
DX: N39.0 Urinary tract infection, site not specified (principal); I50.9 Heart failure, unspecified; N18.1 Chronic kidney disease, stage 1; Z87.891 Personal history of nicotine dependence; Z91.018 Allergy to other foods; Z79.899 Other long term (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
CPT/HCPCS: 36415; 80053; 81001; 83690; 85025; 87088; 96374; 96375; 99284-25; A9270; J1200; J2270; J2405; J7030

== ENCOUNTER 2024-01-04 17:12 | Emergency (ER) | payer MEDICARE, OTHER ==
[~2024-01-04] VITALS: Ht 165.1 cm; Wt 90.6 kg
[~2024-01-04 17:12] MED LIST changes: +CEFDINIR300 MG PO; +LOVASTATIN20 MG PO
[2024-01-04] MEDS ORDERED: BREO ELLIPTA I1 EACH INH (17:26)
[2024-01-04] MEDS ORDERED: PENICILLIN V P500 MG PO (17:53)
[2024-01-04] MEDS ORDERED: HYDROCODONE/ACETA 5/325 TAB PO ONE (18:00)
[2024-01-04] MEDS ORDERED: PENICILLIN V POTASSIUM 500 MG TAB PO ONE (18:00)
[2024-01-04 18:18] VITALS: BP 154/103
== END 2024-01-04 18:18 | disposition home or self-care (01) ==
LOC: ED 17:12
DX: K04.7 Periapical abscess without sinus (principal); I50.9 Heart failure, unspecified; J44.9 Chronic obstructive pulmonary disease, unspecified; Z87.891 Personal history of nicotine dependence; Z91.018 Allergy to other foods; Z79.899 Other long term (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

== ENCOUNTER 2024-05-26 09:37 | Emergency (ER) | payer MEDICARE, OTHER ==
[~2024-05-26] VITALS: Ht 165.1 cm; Wt 93.0 kg
[~2024-05-26 09:37] MED LIST changes: +BREO ELLIPTA I1 EACH INH; +COREG3.125 MG PO; +METFORMIN HCL500 MG PO
[2024-05-26] MEDS ORDERED: ALBUTEROL/IPRATROPIUM 3 ML NEB INH ONE (10:00)
[2024-05-26 10:37] LABS: INFLUENZA B NAA NEGATIVE (NEGATIVE); RESPIRATORY SYNCYTIAL VIR NAA NEGATIVE (NEGATIVE)
[2024-05-26 12:05] VITALS: BP 148/89
== END 2024-05-26 12:05 | disposition home or self-care (01) ==
LOC: ED 09:37
PROVIDERS: Emergency Medicine
DX: U07.1 COVID-19 (principal); J44.9 Chronic obstructive pulmonary disease, unspecified; I50.9 Heart failure, unspecified; E78.00 Pure hypercholesterolemia, unspecified; N18.1 Chronic kidney disease, stage 1; Z87.891 Personal history of nicotine dependence; Z91.018 Allergy to other foods; Z79.899 Other long term (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
CPT/HCPCS: 71045; 87502; 99284-25; U0002

== ENCOUNTER 2024-09-07 18:01 | Emergency (ER) | payer MEDICARE, OTHER ==
[~2024-09-07] VITALS: Ht 165.1 cm; Wt 91.4 kg
[2024-09-07] MEDS ORDERED: KETOROLAC TROMETHAMINE 30 MG/ML VIAL IM ONE (19:30)
[2024-09-07 20:24] VITALS: BP 143/97
--- NOTE | 2024-09-08 10:59 | EKG ---
[facility] [address] [facility] [place] [address] Signed Normal sinus rhythm Left bundle branch block Abnormal ECG When compared with ECG of 21-AUG-2022 08:41, No significant change was found Confirmed by Penny Poe DO ([id number]) on 09/08/2024 10:59:13 AM Electronically Signed By: PENNY POE DO 09/08/24 1059 PATIENT NAME: MARTHA YOUNGBLOOD Electrocardiogram DATE OF : 58 PHYSICIAN: PENNY POE DO REPORT #: [id number] REPORT IS CONFIDENTIAL AND NOT TO BE RELEASED WITHOUT AUTHORIZATION
== END 2024-09-07 20:24 | disposition home or self-care (01) ==
LOC: ED 18:01
DX: S43.422A Sprain of left rotator cuff capsule, initial encounter (principal); N18.1 Chronic kidney disease, stage 1; I50.9 Heart failure, unspecified; Z91.018 Allergy to other foods; Z79.899 Other long term (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; Z79.51 Long term (current) use of inhaled steroids; X58.XXXA Exposure to other specified factors, initial encounter
CPT/HCPCS: 73030; 93005; 93010; 96372; 99283; J1885